=== PATIENT | female | born 1965 | race Caucasian/White ===

== ENCOUNTER 2017-12-11 16:39 | Emergency (ER) | payer MEDICAID ==
[~2017-12-11] VITALS: Ht 144.8 cm; Wt 63.0 kg
[2017-12-11 19:23] VITALS: BP 124/70
== END 2017-12-11 19:24 | disposition home or self-care (01) ==
LOC: ER 16:39
DX: R07.81 Pleurodynia (principal); R03.0 Elevated blood-pressure reading, without diagnosis of hypertension; V47.1XXA Car passenger injured in collision with fixed or stationary object in nontraffic accident, initial encounter; Y93.89 Activity, other specified; Y92.480 Sidewalk as the place of occurrence of the external cause
CPT/HCPCS: 71100; 99284